=== PATIENT | female | born 1975 | race Caucasian/White ===

== ENCOUNTER 2024-07-21 09:41 | Emergency (ER) | payer OTHER, SELFPAY ==
[2024-07-21 10:35] VITALS: BP 123/69; PULSE 72; RESP 18; TEMP 36.3; O2SAT 96; BMI 20.1
--- NOTE | 2024-07-21 10:35 | ED_ITS ---
HPI - Extremity Injury (Upper) General Chief Complaint: Extremity Injury, Upper Stated Complaint: pulled muscle ? shoulder pain rad down wrist Time Seen by Provider: 07/21/24 10:36 Source: patient and old records reviewed Mode of arrival: ambulatory Limitations: no limitations History of Present Illness ED Provider: JALEN NUNEZ narrative: 48 yop female with PMH of fibromyalgia here with c/o worsening R arm pain x 1 month starting at bicep. No known trauma, no numbness, weakness, no swelling, no rash. No procedure to that side. She couldn't get into PCP so she came here. She is R handed. complaint: injury to: right and shoulder Onset (ago): month(s) (1) Other injuries: none Handedness: right Place: home Severity: moderate Relieving factors: immobilization Exacerbating factors: movement of extremity Context: other Associated symptoms: denies other symptoms Related Data Previous Rx's ?Medication ?Instructions ?Recorded cyclobenzaprine 10 mg tablet 10 mg PO TID PRN muscle spasm #20 07/21/24 tabs lidocaine 5 % topical patch 1 patch topical DAILY #30 ea 07/21/24 prednisone 20 mg tablet 20 mg PO DAILY 5 days #5 tabs 07/21/24 Allergies Allergy/AdvReac Type Severity Reaction Status Date / Time fluoxetine [Prozac] Allergy Unknown Unknown Verified 07/21/24 10:36 Review of Systems Review of Systems: Constitutional : No Fever, No Chills ENT/Mouth : No Ear Pain, No Hoarseness, No sore throat Eyes: No Eye Pain, No Swelling, No Redness, No Foreign Body Cardiovascular : No Chest Pain, No SOB Respiratory : No Cough, No Dyspnea Gastrointestinal : No Nausea, No Vomiting, No Diarrhea, No abdominal Pain Genitourinary : No Dysuria, No Hematuria Musculoskeletal : positive joint pain, No Myalgias, No Joint Swelling Skin : No Skin lacerations, No rash Neuro : No Weakness, No Numbness, No Loss of Consciousness, No Dizziness, No Headache All other systems reviewed and are negative [facility] Social History Social History Advance Directives: No Advance Directives Information Provided: Yes Do you have a plan to hurt others: No Plan Physical Exam Vital Signs: Vital Signs: Last Vital Signs Temp 97.4 F 07/21/24 10:35 Pulse 72 07/21/24 10:35 Resp 18 07/21/24 10:35 BP 123/69 07/21/24 10:35 Pulse Ox 96 07/21/24 10:35 O2 Del Method Room Air 07/21/24 10:35 BMI result Body Mass Index 20.1 Appearance: Alert. Oriented X3. No acute distress. Eyes: Pupils equal, round and reactive to light. ENT: Pharynx normal. Neck: Normal inspection. Neck supple. CVS: Normal heart rate and rhythm. Pulses normal. Respiratory: No respiratory distress. Breath sounds normal. Abdomen: Soft and nontender. Skin: Skin warm and dry. Normal skin color. Normal skin turgor. Extremities: No lower extremity edema. R arm distal NV intact, good electronic assembler 5/5 2+ radial pulse ttp along R trapezius and biceps prox tendon insertion Neuro: Oriented X 3. No motor deficit. No sensory deficit. CN2-12 intact Medical Decision Making Medical Decision Making MDM Narrative: 48 yo female with PMH of fibromyalgia she is R handed presents with R shoulder pain reproduceable but she is NV intact has no CP/SOB. She has no signs of infection. Will treat for tendonitis and refer to PCP for outpatinet MRI Differential Diagnosis Differential Diagnoses: The differential diagnosis associated with the presentation includes sprain, strain, tendonitis Tests considered The following testing was considered but not selected: xray but no trauma doubt broken bone Prescription Management I considered prescription management with: Pain Medication Procedures Orthopedic Splinting/Casting Injury #1: Side: right Upper Extremity Injury Location: shoulder Upper Extremity Immobilizer: sling/shoulder immobilizer Discharge Plan Discharge Clinical Impression: Biceps tendinitis Qualifiers: Laterality: right Qualified Code(s): M75.21 - Bicipital tendinitis, right shoulder Patient Disposition: Home, Self-Care Instructions: Tendinitis (ED) Additional Instructions: if not better in 1 week with medications follow up with PCP for MRI return for any worsening symptoms or concerns do not wear sling for more than 3 days to prevent frozen shoulder Prescriptions: New cyclobenzaprine 10 mg tablet 10 mg PO TID PRN (Reason: muscle spasm) Qty: 20 0RF prednisone 20 mg tablet 20 mg PO DAILY 5 Days Qty: 5 0RF lidocaine 5 % adhesive patch,medicated 1 patch topical DAILY Qty: 30 0RF Rx Instructions: leave on most painful area for up to 12 hrs Print Language: Vincentian
[2024-07-21 10:57] VITALS: BP 123/69; PULSE 72; RESP 18; TEMP 36.3; O2SAT 96
== END 2024-07-21 10:57 | disposition home or self-care (01) ==
PROVIDERS: Emergency Provider Emergency Medicine; PCP Internal Medicine
DX: M75.21 Bicipital tendinitis, right shoulder (principal); M79.601 Pain in right arm
CPT/HCPCS: 99282; 99283